=== PATIENT | female | born 1980 | race African-American/Black ===

== ENCOUNTER 2019-06-26 02:21 | Emergency (ER) | payer SELFPAY ==
[~2019-06-26] VITALS: Ht 170.2 cm; Wt 87.0 kg
[2019-06-26 03:33] VITALS: BP 125/84
== END 2019-06-26 03:35 | disposition home or self-care (01) ==
LOC: ER 02:21
DX: S80.861A Insect bite (nonvenomous), right lower leg, initial encounter (principal); L03.115 Cellulitis of right lower limb; I10 Essential (primary) hypertension; F17.210 Nicotine dependence, cigarettes, uncomplicated; Z88.8 Allergy status to other drugs, medicaments and biological substances; Z90.49 Acquired absence of other specified parts of digestive tract; W57.XXXA Bitten or stung by nonvenomous insect and other nonvenomous arthropods, initial encounter; Y93.89 Activity, other specified; Y92.018 Other place in single-family (private) house as the place of occurrence of the external cause
CPT/HCPCS: 99282